=== PATIENT | male | born 1980 | race Caucasian/White ===

== ENCOUNTER 2024-11-06 00:46 | Emergency (ER) | payer BC, SELFPAY ==
[2024-11-06 00:51] VITALS: BP 154/101
[2024-11-06 01:06] VITALS: BMI 43.6
--- NOTE | 2024-11-06 01:07 | EDRN ---
Pt says he has had diverticulitis twice and started feeling like it was starting again so he wants to get abx started philip. Pain started few hours ago in upper abdomen. Pt feels bloated, inflamed and says pain moves around when he does. No
n/v/d/c, fever/cough, cp, sob, urinary symptoms. Last BM around 1700. Normal appetite.
--- NOTE | 2024-11-06 01:20 | EDRN ---
Pt ate 2 slices pizza and tater tots for dinner.
[2024-11-06 01:21] LABS: Hematocrit 40.9 % (39.0-52.0); Hemoglobin 13.9 g/dL (13.0-18.0); Mean Corp Hgb Conc. 34.0 g/dL (33.0-37.0); Mean Corpuscular Volume 89.9 fL (80.0-94.0); Nucleated Red Blood Cells % 0 % (-); Platelet Count 235 10^3/uL (130-400); Red Cell Dist. Width 13.6 % (11.5-14.5)
[2024-11-06 01:30] VITALS: BP 149/84
[2024-11-06 01:46] LABS: ALT (SGPT) 41 U/L (0-50); AST (SGOT) 37 U/L (17-59); Albumin 4.2 g/dl (3.5-5.0); Alkaline Phosphatase 78 U/L (38-126); Blood Urea Nitrogen 23 mg/dl (9-20); Calcium 9.4 mg/dl (8.4-10.2); Carbon Dioxide 27 mmol/L (22-30); Chloride 107 mmol/L (98-107); Estimated Creatinine Clearance > 125 ml/min; Glucose 109 mg/dl (70-99); Lipase 65 U/L (23-300); Potassium 4.2 mmol/L (3.5-5.1); Sodium 139 mmol/L (135-145); Total Protein 7.4 g/dl (6.3-8.2); eGFR > 60.00
--- NOTE | 2024-11-06 02:31 | ED.GENMED ---
History of Present Illness
General
Chief Complaint: Abdominal Pain
Source: patient
Time Seen by Provider: 11/06/24 00:58
History of Present Illness
History of Present Illness:
Note:
CHIEF COMPLAINT(S)
Abdominal pain possibly due to another bout of diverticulitis.
HISTORY OF PRESENT ILLNESS
The patient is a 43-year-old individual presenting with symptoms suggestive of diverticulitis, similar to previous episodes that occurred in 2019 and less than a year ago. Two hours prior to the encounter, the patient experienced sudden-onset
abdominal pain. The patient mentioned not eating all day and consumed two pieces of pizza and some tater tots around an hour before the pain commenced. The patient describes the pain as lingering but states it has not escalated to the severity of
previous episodes. There is no nausea or fever. During evaluation, mild tenderness was noted in the lower abdomen, with minimal tenderness on the right side.
PAST MEDICAL AND SURGICAL HISTORY
- Gastroesophageal reflux disease (GERD).
CHRONIC MEDICAL CONDITIONS SIGNIFICANTLY AFFECTING CARE
- Gastroesophageal reflux disease (GERD).
REVIEW OF SYSTEMS
- Gastrointestinal: Sudden-onset abdominal pain, mild tenderness in the lower abdomen, no nausea, no fever.
PHYSICAL EXAM
General: Alert, no acute distress.
Skin: Warm, dry.
Head: Normocephalic, atraumatic.
Neck: Supple, trachea midline.
Eye, Ears, Nose, Mouth, and Throat: Oral mucosa moist.
Cardiovascular: Normal peripheral perfusion, no edema. Heart is regular.
Respiratory: Respirations are non-labored.
Gastrointestinal: Abdomen has mild tenderness in the lower region, no distension, no rebound tenderness, and no guarding.
Back: Normal range of motion, normal alignment.
Musculoskeletal: Normal range of motion, normal strength.
Neurological: Alert and oriented to person, place, time, and situation, no focal neurological deficit observed.
Psychiatric: Cooperative, appropriate mood and affect.
PROBLEM LIST
Acute Problems:
- Possible diverticulitis
Chronic Problems:
- Gastroesophageal reflux disease (GERD)
PLAN
- Obtain laboratory tests and a computed tomography (CT) scan of the abdomen with contrast to evaluate for diverticulitis.
- Monitor for signs of inflammation or the presence of air pockets in diverticula.
- Discuss results of CT scan to confirm diagnosis and guide treatment.
DIFFERENTIAL DIAGNOSIS
The Differential Diagnosis includes, in no particular order and is not limited to:
1. Diverticulitis
2. Gastroenteritis
3. Peptic ulcer disease
4. Irritable bowel syndrome
5. Gastritis
6. Appendicitis
7. Intestinal obstruction
8. Cholecystitis
9. Pancreatitis
10. Urinary tract infection
Disposition:
SUMMARY OF ENCOUNTER
The patient, a 43-year-old individual, presented to the emergency department with sudden-onset abdominal pain, suggesting a possible bout of diverticulitis similar to previous episodes. The patient consumed two pieces of pizza prior to the onset of
pain and reported no nausea or fever. A physical examination revealed mild tenderness in the lower abdomen without acute distress. Laboratory tests, including CBC, LFTs, BMP, and CMP, returned normal. A CT scan indicates possible early acute
diverticulitis. Based on these findings, the patient was deemed stable for discharge with instructions for follow-up care and treatment outpatient antibiotics
DISPOSITION
Discharge
ASSESSMENT
Possible early diverticulitis CT findings.
PLAN
The patient will be monitored for any signs of inflammation. Immediate follow-up was not deemed necessary due to stable examination findings, but the patient was advised to seek follow-up care if symptoms persist or worsen.
INDEPENDENT REVIEW OF LABS AND INTERPRETATION OF TESTS
My independent review of CBC indicates a normal white blood cell count.
My independent review of LFTs indicates normal liver function.
My independent review of BMP and CMP indicates normal renal and metabolic function.
INDEPENDENT RADIOLOGY INTERPRETATION
My independent interpretation of the CT scan of the abdomen shows questionable mild early acute diverticulitis present.
PATIENT EDUCATION AND COUNSELING
The patient was counseled regarding the signs and symptoms of diverticulitis and advised on dietary modifications and the importance of prompt follow-up if symptoms persist or worsen.
FOLLOW-UP INSTRUCTIONS
The patient was advised to call to schedule a follow-up visit with their primary care physician to discuss symptoms and further management.
MEDICAL DECISION MAKING
- Number and Complexity of Problems Addressed:
Chronic conditions affecting care - Gastroesophageal reflux disease (GERD).
DDx list includes diverticulitis, gastroenteritis, peptic ulcer disease, irritable bowel syndrome, gastritis, appendicitis, intestinal obstruction, cholecystitis, pancreatitis, urinary tract infection.
- Data:
Category 1:
Clinical tests reviewed include CBC, LFTs, BMP, CMP, and CT scan.
- Risk:
Consideration of Admission/Observation: Escalation of care including admission/observation was considered given the complexity and risk of the patients presenting complaint. However, ultimately I feel the patient is safe for outpatient management
with close follow-up. Reasoning: Work-up reassuring, does not reveal any acute life/organ-threatening processes, patients symptoms well controlled upon reevaluation, reexamination is reassuring, vitals are stable, patient agreeable with discharge,
reliable for follow-up.
DIAGNOSIS
R10.9 - Unspecified abdominal pain
K57.92 - Diverticulitis of intestine, part unspecified, without perforation or abscess with or without bleeding
Phy Exam
Physical Exam
Physical Exam:
.
Course
Orders/Labs/Results
Orders:
Orders
11/06/24 00:58
Urinalysis Reflex To Culture Urgent
11/06/24 00:59
CT Abd/Pel (IV only)-DH only Urgent
Comment:
Reason For Exam: mid abd pain
11/06/24 01:14
Complete Blood Count/With Diff Urgent
Comprehensive Metabolic Panel Urgent
Lipase Urgent
Abnormal Lab Results
11/06/24
01:14
RBC 4.55 L 10^6/uL
(4.70-6.10)
MPV 11.3 H fL
(7.4-10.4)
Absolute Monos (auto) 1.0 H 10^3/uL
(0.1-0.6)
Lymphocytes % 17.5 L %
(20.5-51.1)
Monocytes % 11.1 H %
(1.7-9.3)
BUN 23 H mg/dl
(9-20)
Glucose 109 H mg/dl
(70-99)
11/06/24 01:14
11/06/24 01:14
Vital Signs
Initial and Last Documented VS:
Initial Vital Signs
Temp Pulse Resp BP Pulse Ox
98.8 F 91 20 154/101 94
11/06/24 00:51 11/06/24 00:51 11/06/24 00:51 11/06/24 00:51 11/06/24 00:51
Last Documented Vital Signs
Temp Pulse Resp BP Pulse Ox
98.8 F 90 16 149/84 99
11/06/24 00:51 11/06/24 01:30 11/06/24 01:30 11/06/24 01:30 11/06/24 01:30
*Pulse Oximetry
SaO2: 99
Oxygen Mode of Delivery: Room air
Patient hypoxic: no
*Critical Care Note
Total Time (30-74mins, 75-104mins- exclusive of procedures): Not Applicable
ED Attending Note
-
Portions of this chart may have been created with voice recognition software.� Occasional wrong word or��sound alike� substitutions may have occurred due to the inherent limitations of voice recognition software.
Discharge Plan
Departure
Patient Disposition: Home (Routine Discharge)
Date of Disposition: 11/06/24
Time of Disposition: 02:36
Patient with high blood pressure during this ER visit?: Yes
Discharge Problem:
Abdominal pain, Diverticulitis
Instructions: Diverticulitis (DC), Abdominal Pain
Prescriptions:
New
amoxicillin-pot clavulanate 875-125 mg tablet
1 tab PO BID Qty: 20 0RF
No Action
omeprazole 40 mg Capsule,Delayed Release(Dr/Ec)
40 mg PO DAILY
Referrals:
NONE,* [Family Provider, Internal Medicine]
Activity Restrictions/Additional Instructions:
Stick to a bland diet for the next 24 hours. Drink plenty of fluids. Return immediately for intractable vomiting, fevers, worsening pain or any other concerns.
Interventions
Interventions:
*Risk Screen - Suicide Last Done: 11/06/24 00:51
*General Assessment Last Done: 11/06/24 00:51
*Neglect/Abuse Screening Last Done: 11/06/24 00:51
*ED- Fall Risk Assessment Last Done: 11/06/24 00:51
*ED COVID-19 Vaccine History Last Done: 11/06/24 00:51
[facility]-Owvrm[facility]-Otcmdfqqke Assessment Last Done: 11/06/24 01:17
Discharge Date and Time
Print Language: TAJIK
[2024-11-06] MEDS: AUGMENTIN 875 MG/125 MG 1 TABLET PO (02:42)
[2024-11-06 02:44] VITALS: BP 115/63
== END 2024-11-06 02:52 | disposition home or self-care (01) ==
LOC: EMR 00:46
PROVIDERS: EMERGENCY PHYSICIAN Emergency Medicine
DX: R10.9 Unspecified abdominal pain (principal); K57.32 Diverticulitis of large intestine without perforation or abscess without bleeding
CPT/HCPCS: 99284; 74177; 80053; 83690; 85025; Q9967